=== PATIENT | female | born 1970 | race Caucasian/White ===

== ENCOUNTER → 2021-07-25 | Day surgery (SDC) | payer OTHER ==
[~2021-07-25] VITALS: Ht 160 cm; Wt 67.1 kg
[~2021-07-25] MED LIST: LISINOPRIL20 MG PO
== END | disposition home or self-care (01) ==
LOC: FAS 11:27
DX: Z12.11 Encounter for screening for malignant neoplasm of colon (principal); I10 Essential (primary) hypertension; F41.9 Anxiety disorder, unspecified; Z79.899 Other long term (current) drug therapy; Z90.710 Acquired absence of both cervix and uterus; Z72.89 Other problems related to lifestyle; Z87.891 Personal history of nicotine dependence
CPT/HCPCS: J2250; J2704; J7120